=== PATIENT | female | born 1935 | race Caucasian/White ===

== ENCOUNTER 2024-11-10 00:46 | Emergency (ER) | payer MEDICARE, OTHER, SELFPAY ==
--- OUTSIDE RECORDS SUMMARY | 2024-10-28 14:00 | XMS_ITS | Encounter Summary ---
Author Organization [facility] Address [address] [place] [address] Care Team Providers Care Merchant Miller Name Role Phone Ramon Nicole DO Primary Care Provider Source Comments In the event this information is protected by the Federal Confidentiality of Alcohol and Drug AbusePatient Records regulations: The Federal rules restrict any use of the information to criminally investigate or prosecute any alcohol or drug abuse patient.[facility] Encounter Details Date Type Department Care Team (Latest Contact Info) Description 10/28/2024 2:00 PM EDT [facility] Hematology/Oncology [address] [place] [address] [place] [address] Malignant neoplasm of upper-outer quadrant of left breast in female, 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 Last address used for calculation [address] 04/06/2023 Comments No Sex and Gender Information Value Date Recorded Sex Assigned at Not on file Legal Sex Female 10:12 AM EST Gender Identity Not on file Sexual Orientation Not on file documented as of this encounter Functional Status * Are you deaf or do you have serious difficulty hearing? Answer Date of Assessment Author No 07/30/2014 10:07 AM Katja Tse RN * Are you blind or do you have serious difficulty seeing, even when wearing glasses? Answer Date of Assessment Author No 07/30/2014 10:07 AM Katja Tse RN * Do you have serious difficulty walking or climbing stairs? Answer Date of Assessment Author No 07/30/2014 10:07 AM Katja Tse RN * Do you have difficulty dressing or bathing? Answer Date of Assessment Author No 07/30/2014 10:07 AM Katja Tse RN * Because of a physical, mental, or emotional condition, do you have difficulty doing errands alone such as visiting a doctor's office or shopping? Answer Date of Assessment Author No 07/30/2014 10:07 AM Katja Tse RN documented as of this encounter Mental Status * Because of a physical, mental, or emotional condition, do you have serious difficulty concentrating, remembering, or making decisions? Answer Entry Date Author No 07/30/2014 10:07 AM Katja Tse RN documented in this encounter Plan of Treatment Upcoming Encounters Date Type Department Care Team (Latest Contact Info) Description 02/04/2025 1:45 PM EST [facility]fusion Center Hematology/Oncology [address] [place] [address] [place] [address] Lab port & Flush. Follow up obed Spencer 02/04/2025 2:00 PM EST Visit (SP) Office Hematology/Oncology [address] [place] [address] [place] [address] Johanna Cohen, PALeighC [address] [place] [address] [place] [address] Lab port & Flush. Follow up obed Spencer documented as of this encounter Visit Diagnoses Diagnosis Malignant neoplasm of upper-outer quadrant of left breast in female, estrogen receptor negative (HCC)- Primary documented in this encounter Care Teams Merchant Miller Relationship Specialty Start Date End Date CoreyRamon DO Darron [address] [place] [address] PCP - General Genetics 01/12/11 documented as of this encounter
[2024-11-10] VITALS (21 sets, daily range): BP systolic 115–168; BP diastolic 64–91; PULSE 78–104; TEMP 37.7; O2SAT 88–97; BMI 29.3
--- OUTSIDE RECORDS SUMMARY | 2024-11-10 00:58 | XMS_ITS | Continuity of Care Document ---
Author Organization [facility] Address [address] [place] [address] Problems Unknown Problems Results Test Result Date/Time Value / Unit Interp. Refere nce Range SARS-CoV-2 (COVID-19), RT-PC R/TMA[[id number]] Collected: 12/04/2020 02:55 PM Specimen Received: 12/05/2020 07:32 PM Source: [facility] SARS-CoV-2 INTERPRETATION [[id number]] 12/06/2020 01:34 AM Negative See Note SARS-CoV-2 RNA NOT DETECTEDN egative results do not preclude SARS-CoV-2 infection and should notbe used as the sole basis for patient management decisions. Negativeresults must be combined with clinical observations, patient history,and epidemiological information. Optimum specimen types and timingfor peak viral levels during infections caused by SARS-CoV-2 have notbeen determined. Collection of multiple specimens or types ofspecimens may be necessary to detect virus. Improper specimencollection and handling, sequence variability under primers/probes,or organism present below the limit of detection may lead to falsenegative results. Positive and negative predictive values oftesting are highly dependent on prevalence. False negative testresults are more likely when prevalence is high. SOURCE [[id number]] 12/06/2020 01:34 AM NASOPHARYNGEAL Note: Methodology is David C gwendolyn Real-Time RT-PCR. The expected result or reference range is NEGATIVE (Not Detected). For more information regarding COVID-19 testing to include clinicalinformation, methodology detail, intended use, FDA authorization andrecommended fact sheets for patients or healthcare providers, see [employer] Announcement: SARS-CoV-2 (COVID-19) by NAAT at URL below (note,fact sheets are provided by method given in report:[email or web address]/ Alternatively, see downloadable PDF fact sheet at:https://www.for; to (do) Centers.[employer]/RAAAR-30-BN-PCR Allergies, adverse reactions, alerts No known allergies and adverse reactions Medications No administered medications reported Vital Signs No vital signs reported Social History No smoking Hx information available
--- OUTSIDE RECORDS SUMMARY | 2024-11-10 00:58 | XMS_ITS | Encounter Summary ---
Author Organization [employer] Address [id number] [address] [place] [address] Care Team Providers Care Hydraulic Jack Operator Name Role Phone DamiRamon madison Primary Care Provider + [phone] Reason for Visit * Reason Onset Date Comments Med Refill 10/30/2023 Encounter Details Date Type Department Care Team (Late st Contact Info) Description 10/30/2023 Refill [facility] - Family Medicine [address] [place] [address] Mirtha Castillo CMA Social History Tobacco Use Types Packs/Day Years Used Date Smoking Tobacco: Never Smokeless Tobacco: Never Alcohol Use Standard Drinks/Week Comments Yes 0 (1 standard drink = 0.6 oz pur e alcohol) Occasional C Utilities Answer Date Recorded In the past 12 months has e electric, gas, oil, or water company threatened to shut off services in your home? No 12/06/2022 Social Connection and Isolat ion Panel [NHANES] Answer Date Recorded In a typical week, how many times do you talk on the phone with family, friends, or neighbors? More than three times a week 12/06/2022 How often do you get togethe r with friends or relatives? More than three times a week 12/06/2022 How often do you attend chur ch or mandaen services? More than 4 times per year 12/06/2022 Do you belong to any clubs o r organizations such as denominational groups, unions, fraternal or athletic groups, or school groups? Yes 12/06/2022 How often do you attend meet ings of the clubs or organizations you belong to? 1 to 4 times per year 12/06/2022 Are you , , di vorced, , never , or living with a partner? 12/06/2022 AUDIT-C Answer Date Recorded Q1: How often do you have a drink containing alcohol? Monthly or less 12/06/2022 Q2: How many drinks containi ng alcohol do you have on a typical day when you are drinking? Patient does not drink Q3: How often do you have si x or more drinks on one occasion? Never 12/06/2022 Overall Financial Resource Strain (CARDIA) Answe r Date Recorded How hard is it for you to pa y for the very basics like food, housing, medical care, and heating? Not hard at all 12/06/2022 PHQ-2 Answer Date Recorded Total Score 0 09/13/2023 [facility] - Occupational Stress Questionnaire Answer Date Recorded Do you feel stress - tense, restless, nervous, or anxious, or unable to sleep at night because your mind is troubled all the time - these days? Not at all 12/06/2022 Exercise Vital Sign Answer Date Recorde d On average, how many days pe r week do you engage in moderate to strenuous exercise (like a brisk walk)? 0 days 12/06/2022 On average, how many minutes do you engage in exercise at this level? 0 min 12/06/2022 PRAPARE - Transportation Answer Date Re corded In the past 12 months, has l ack of transportation kept you from medical appointments or from getting medications? No 11/20 In the past 12 months, has l ack of transportation kept you from meetings, work, or from getting things needed for daily living? No 12/06/2022 Housing Instability Answer Date Recorde d Are you worried or concerned that in the next two months you may not have stable housing that you own, rent or stay in as a part of a household? No 12/06/2022 Childcare Answer Date Recorded Do problems getting child ca re make it difficult for you to work or study? No 12/06/2022 Employment Answer Date Recorded Do you need help finding a [facility] career center and/or a training program? No 12/06/2022 Hunger Screening Answer Date Recorded Within the past 12 months we worried whether our food would run out before we got money to buy more. Never True 09/13/2023 Within the past 12 months th e food we bought just didn't last and we didn't have money to get more. Never True 09/13/2023 Purpose - Life Answer Date Recorded I have a purpose and direction in my life. Stron gly Agree 12/06/2022 Comments No Sex and Gender Information Value Date Recorded Sex Assigned at Not on file Legal Sex Female 11:38 AM EDT Gender Identity Not on file Sexual Orientation Not on file documented as of this encounter Plan of Treatment Upcoming Encounters Date Type Department Care Team (Late st Contact Info) Description 10/16/2025 3:20 PM EDT Office Visit [facility] - [facility] Medicine [address] [place] [address] documented as of this encounter Visit Diagnoses Not on filedocumented in this encounter Additional Health Concerns Assessment Noted Time PHQ-9 Depression Total Score: 0 09/13/19 11:01 AM EDT A Body Mass Index follow-up plan has been documented for the patient 09/13/2023 11:28 AM EDT documented as of this encounter Care Teams Hydraulic Jack Operator Relationship Specialty Start Date End Date Ramon Nicole DO [address] [place] [address] PCP - General Family Medicine 09/07/16 documented as of this encounter
--- OUTSIDE RECORDS SUMMARY | 2024-11-10 00:58 | XMS_ITS | Encounter Summary ---
Author Organization [employer] Address [id number] [address] [place] [address] Care Team Providers Care Medicine Aide Name Role Phone Ramon Nicole Primary Care Provider + [phone] Reason for Visit * Reason Comments Med Refill Encounter Details Date Type Department Care Team (Late st Contact Info) Description 06/23/2022 Refill [facility] - Family Medicine [address] [place] [phone] Kristen Gonzalez, NAYELI-SECTION HAND HELPER [address] [address] Social History Tobacco Use Types Packs/Day Years Used Date Smoking Tobacco: Never Smokeless Tobacco: Never Alcohol Use Standard Drinks/Week Comments Yes 0 (1 standard drink = 0.6 oz pur e alcohol) Occasional PHQ-2 Answer Date Recorded Total Score 0 11/29/2021 Childcare Answer Date Recorded Childcare Unknown 08/01/2018 Employment Answer Date Recorded Employment Unknown 08/01/2018 Purpose - Life Answer Date Recorded Purpose and direction in life Unknown Comments No Sex and Gender Information Value Date Recorded Sex Assigned at Not on file Legal Sex Female 11:38 AM EDT Gender Identity Not on file Sexual Orientation Not on file documented as of this encounter Plan of Treatment Upcoming Encounters Date Type Department Care Team (Late Contact Info) Description 10/16/2025 3:20 PM EDT Office Visit [facility] - Family Medicine [address] [place] [phone] documented as of this encounter Visit Diagnoses Not on filedocumented in this encounter Additional Health Concerns Assessment Noted Time PHQ-9 Depression Total Score: 0 11/30/19 22 9:15 AM EDT documented as of this encounter Care Teams Medicine Aide Relationship Specialty Start Date End Date Ramon Nicole DO [address] [facility], [place] [address] PCP - General Family Medicine 09/07/16 documented as of this encounter
--- OUTSIDE RECORDS SUMMARY | 2024-11-10 00:58 | XMS_ITS | Clinical Summary ---
Author Organization [employer] Address [id number] [address] [place] [address] Care Team Providers Care Cord Cutter Name Role Phone MiladisRamon hummel Primary Care Provider Allergies No known active allergies Medications loratadine (CLARITIN) 10 mg tablet Take 1 tablet (10 mg total) by mouth in the morning. Active ascorbic acid, vitamin C, (vitamin C) 100 MG tablet See Admin Instructions. Active vitamin E90-hzzgu acid 0.5-1 mg tablet Active magnesium oxide (MAGOX) 400 mg tablet Active triamcinolone (KENALOG) 0.1 % ointmentIndica tions:Acute dermatitis Apply 1 Application topically in the morning and 1 Application before bedtime. 30 g 1 09/13/19 24 Active furosemide (LASIX) 20 mg tabletIndicati ons:Localized edema Take 1 tablet by mouth once daily 90 tablet 1 07/19/19 25 Active bisoprolol-hyd roCHLOROthiazi de (ZIAC) 10-6.25 mg per tablet Take 1 tablet by mouth once daily 90 tablet 1 08/12/19 25 Active lisinopriL (PRINIVIL,ZEST RIL) 40 mg tablet TAKE 1 TABLET BY MOUTH IN THE MORNING 120 tablet 1 10/10/19 25 Active amLODIPine (NORVASC) 10 mg tablet TAKE 1 TABLET BY MOUTH IN THE MORNING 120 tablet 1 10/25/19 25 Active amLODIPine (NORVASC) 10 mg tablet TAKE 1 TABLET BY MOUTH IN THE MORNING 120 tablet 1 02/19/20 24 025 Discontinued Active Problems Problem Noted Date Diagnosed Date Pedal edema 12/28/2023 Dermatitis 12/28/2023 Hypokalemia 11/30/2021 Essential hypertension 11/29/2021 Impaired fasting glucose 11/29/2021 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/07/2020 Adenomatous polyp of colon 10/30/2019 Nonspecific colitis 10/30/2019 Non-specific colitis 10/30/2019 Rectal bleeding 10/24/2019 Rectal hemorrhage 10/24/2019 Personal history of breast cancer 12/03/2013 Hyperlipidemia IFG (impaired fasting glucose) Resolved Problems Problem Noted Date Diagnosed Date Resolved Date Malignant neoplasm of female breast, unspecified estrogen receptor status, unspecified laterality, unspecified site of breast 12/28/2023 07/03/2024 Primary hyperparathyroidism 11/29/2021 07/13/2022 Encounters Date Type Department Care Team Description 10/24/2024 Refill [facility] - Family Medicine [address] [place] [address] Ramon Nicole DO 10/17/2024 12:55 PM EDT - 10/17/2024 11:59 PM EDT Hospital Encounter [facility] - Mammography/DEXA Imaging [address] [place] [address] Visit for screening mammogram Discharge Disposition: Home 10/17/2024 Travel 10/10/2024 3:00 PM EDT [facility] [address] [place] [address] Ramon Nicole DO Medicare annual wellness visit, subsequent (Primary Dx); Screening for depression 10/10/2024 Travel 10/09/2024 Refill [facility] - Family Medicine [address] [place] [address] Ramon Nicole DO 08/11/2024 Refill [facility] - Family Medicine [address] [place] [address] Ramon Nicole DO from Last 3 Months Immunizations Immunization Administration Dates Next Due COVID-19, mRNA, LNP-S, PF, 1 00mcg/0.5mL Dose 03/23/2020,02/21/2020 COVID-19, mRNA, LNP-S, PF, 30mcg/0.3mL Dose 03/23,03/19/2020 Influenza (IM) Preservative Free 02/04/2016,01/20,01/28/2015 Influenza Split Preservative Free ID 12/02/2015 Influenza, Im Trivalent Preservative 12/03/2015 Influenza, Unspecified 01/24/2015 Pneumococcal Conjugate 13-Valent 03/05/2013 Pneumococcal Polysaccharide 12/30/2004 Td, Unspecified 08/17/2006 Tdap 09/23/2015 Tetanus 02/01/1999 Zoster Live 2012 Zoster Vaccine Recombinant 12/02/2021 Family History Medical History Relation Name Comments Breast cancer Maternal Aunt yola Relation Name Status Comments Father Maternal Aunt yola Mother Social History Tobacco Use Types Packs/Day Years Used Date Smoking Tobacco: Never Smokeless Tobacco: Never Tobacco Cessation:Counseling Given: Not Answered Alcohol Use Standard Drinks/Week Comments Yes 0 (1 standard drink = 0.6 oz pur e alcohol) Occasional [employer] Utilities Answer Date Recorded In the past 12 months has [employer] electric, gas, oil, or water [employer] threatened to shut off services in your [...] often do you attend chur ch or mosque services? More than 4 times per year 12/06/2022 Do you belong to any clubs o r organizations such as temple groups, unions, fraternal or athletic groups, or [...] PHQ-2 Answer Date Recorded Total Score 0 10/10/[address] [facility] [place] [facility] Occupat ional Health - Occupational Stress [...] exercise (like a brisk walk)? 0 days 10/10/2024 On average, how many minutes do you engage in exercise at this level? 0 min 10/10/2024 PRAPARE - Transportation Answer Date Re corded [...] Recorded Do you need help finding a [facility] career center and/or a training program? No 12/06/2022 Hunger Screening Answer Date Recorded Within the past 12 months we worried whether our food would run out before we got money to buy more. Never True 10/10/2024 Within the past 12 months th e food we bought just didn't last and we didn't have money to get more. Never True 10/10/2024 Purpose - Life Answer Date Recorded I have a purpose and direction in my life. Stron gly Agree 12/06/2022 Comments No Sex and Gender Information Value Date Recorded Sex Assigned at Not on file Legal Sex Female 11:38 AM EDT Gender Identity Not on file Sexual Orientation Not on file Last Filed Vital Signs Vital Sign Reading Time Taken Comments Blood Pressure 130/80 10/10/2024 2:46 PM EDT Pulse 71 07/03/2024 9:26 AM EDT Temperature 36.6 C (97.8 F) 07/03/2024 9:26 AM EDT Respiratory Rate 18 07/03/2024 9:26 AM EDT Oxygen Saturation 94% 07/03/2024 9:26 AM EDT Inhaled Oxygen Concentration - - Weight 69.4 kg (153 lb) 10/10/2024 2:46 PM EDT Height 144.8 cm (4' 9 ) 10/10/2024 2:46 PM EDT Body Mass Index 33.11 10/10/2024 2:46 PM EDT Plan of Treatment Upcoming Encounters Date Type Department Care Team (Late st Contact Info) Description 10/16/2025 3:20 PM EDT Office Visit [facility] - Family Medicine [address] [place] [phone] Health Maintenance Due Date Last Done Comments Influenza Vaccine 10/21/2024 02/04/2016, , 12/03/2015, Additional history exists Zoster (Shingles) Vaccine (2 of 2) 12/30/2024 12/02/2021, 2012 Postponed from 01/27/2022 (Vaccine Not Available) DTaP,Tdap and Td Vaccines (2 - Td or Tdap) 09/22/2025 09/23/2015, 08/17/2006 Depression Screening 10/10/2025 10/10/2024 Fall Risk Screening 10/10/2025 10/10/2024 Medicare Annual Wellness Visit 10/10/2025 10/10/2024, 12/06/2022, 11/29/2021 Tobacco Screening 10/10/2025 10/10/2024 COVID-19 Vaccine Discontinued 03/02/2021, , 03/23/2020, Additional history exists Medical Devices Implanted Type Area Cytopathologist Device Identifier Shelf Expiration Date Model / Serial / Lot Acrysof Iol Implanted:Qty: 1 on 12/07/2020 by Cody Lainez DO at [facility] Right: Eye [employer] 04/19/2025 [id number] / [id number] / NA Procedures Procedure Name Priority Date/Time Associated Diagnosis Comments MAMM SCREENING BILATERAL W CAD Routine 10/17/2024 1:17 PM EDT Visit for screening mammogram from Last 3 Months Results * Mammography screening bilateral with CAD (10/17/2024 1:17 PM EDT) Anatomical Region Laterality Modality Breast Bilateral Mammography 10/22/2024 8:18 AM EDT Narrative 10/22/2024 8:20 AM EDT VERONICA DAVENPORT 1935 [id number] EXAM: MAMM SCREENING BILATERAL W CAD, 10/17/2024 12:55 PM CLINICAL INDICATIONS: Screening, Visit for screening mammogram COMPARISON: 10/16/2023 TECHNIQUE: Bilateral digital tomosynthesis MLO and CC views of the breasts were obtained, with creation of synthetic 2D views. Computer aided detection was utilized. FINDINGS: The breasts are heterogeneously dense, which may obscure small masses. There are postoperative changes in the left breast. Benign-appearing calcifications are present. There are no suspicious masses, calcifications, or areas of architectural distortion. IMPRESSION: No mammographic evidence of malignancy. BI-RADS: BI-RADS 2 - Benign RECOMMENDATION: Routine screening mammogram in 1 year. RISK ASSESSMENT: Tyrer-Cuzick score not calculated. The TC risk model does not apply to patients with a personal history of breast malignancy, those over the age of 84, male, or transgender patients. Finalized by Mitch Jaffe MD on 10/22/2024 8:20 AM 2 c MAMM 1 YR FDA Accredited Performing Facility: [facility] - Mammography/DEXA Imaging [address] [facility] [id number] Procedure Note Mitch Jaffe MD - 10/22/2024 VERONICA DAVENPORT 1935 [id number] EXAM: MAMM SCREENING BILATERAL W CAD, 10/17/2024 12:55 PM CLINICAL INDICATIONS: Screening, Visit for screening mammogram COMPARISON: 10/16/2023 TECHNIQUE: Bilateral digital tomosynthesis MLO and CC views of the breastswere obtained, with creation of synthetic 2D views. Computer aideddetection was utilized. FINDINGS: The breasts are heterogeneously dense, which may obscure small masses. There are postoperative changes in the left breast. Benign- appearingcalcifications are present. There are no suspicious masses,calcifications, or areas of architectural distortion. IMPRESSION: No mammographic evidence of malignancy. BI-RADS: BI-RADS 2 - Benign RECOMMENDATION: Routine screening mammogram in 1 year. RISK ASSESSMENT: Tyrer-Cuzick score not calculated. The TC risk model does not apply topatients with a personal history of breast malignancy, those over the ageof 84, male, or transgender patients. Finalized by Mitch Jaffe MD on 10/22/2024 8:20 AM 2 c MAMM 1 YR FDA Accredited Performing Facility: [facility] - Mammography/DEXA Imaging [address] [place] [place] [address] Dereck Stephens MD IMG MAMMOGRAPHY ORDERABLE S Final Result from Last 3 Months Insurance MEDICARE Care Teams Cord Cutter Relationship Specialty Start Date End Date Ramon Nicole DO [address] [facility], [place] [address] PCP - General Family Medicine 09/07/16
--- OUTSIDE RECORDS SUMMARY | 2024-11-10 00:58 | XMS_ITS | Encounter Summary ---
Author Organization [facility] Address [id number] [address] [place] [address] Care Team Providers Care Maintenance Mechanic Millwright Name Role Phone Ramon Nicole Primary Care Provider + [phone] Reason for Visit * Reason Comments Med Refill Encounter Details Date Type Department Care Team (Late st Contact Info) Description 02/22/2022 Refill [facility] Internal Medicine - Family Medicine [address] [place] [phone] Kristen Gonzalez, NAYELI-SAILING MASTER [address] [place] [address] Social History Tobacco Use Types Packs/Day Years [...] Medicine - Family Medicine [address] [place] [phone] documented as of this encounter Visit Diagnoses Not on filedocumented in this encounter Additional Health Concerns Assessment Noted Time PHQ-9 Depression Total Score: 0 11/30/19 22 9:15 AM EDT documented as of this encounter Care Teams Maintenance Mechanic Millwright Relationship Specialty Start Date End Date Ramon Nicole DO [address] [facility], [place] [address] PCP - General Family Medicine 09/07/16 documented as of this encounter
--- OUTSIDE RECORDS SUMMARY | 2024-11-10 00:58 | XMS_ITS | Clinical Summary ---
Author Organization [facility] Address [address] [place], [place] [id number] Care Team Providers Care Mid Level Business Analyst Name Role Phone Ramon Nicole DO Primary Care Provider Allergies No known active allergies Medications lisinopril 20 mg tablet Take 20 mg by mouth twice daily. Active Aspirin 81 mg Tab Take 81 mg by mouth once daily. Active bisoprolol-hydro chlorothiazide 10-6.25 mg per tablet Take 1 tablet by mouth once daily. Active Magnesium 500 mg Tab Take by mouth. Active VITAMIN B COMPLEX ORAL Take by mouth. Active amLODIPine (NORVASC) 10 mg tablet Take 10 mg by mouth once daily. 01/24/2019 Active ascorbic acid (VITAMIN C ORAL) Take by mouth. Active Multivitamins-Mi nerals-Lutein (MULTIVITAMIN 50 PLUS) tab Take 1 tablet by mouth once daily. Active ascorbic acid,sod/zinc ox,gluc (ZINC AND C ORAL) Take by mouth. Active Active Problems Problem Noted Date Diagnosed Date Personal history of malignant neoplasm of breast 12/03/2013 Breast CA 12/23/2011 Encounters Date Type Department Care Team Description 10/28/2024 2:00 PM EDT Infusion Center Hematology/Oncology [address] [place] [address] [place] [address] Malignant neoplasm of upper-outer quadrant of left breast in female, estrogen receptor negative (HCC) (Primary Dx) 08/26/2024 Telephone [facility] [address] [place] [address] Johanna Cohen, PALeighC from Last 3 Months Immunizations Immunization Administration Dates Next Due influenza (IIV3) vaccine, tr ivalent, PF (AFLURIA, FLUARIX, FLULAVAL, FLUVIRIN, FLUZONE) 02/04/2016,02/04/2016,12/02/2015,01/28 pneumococcal conjugate (PCV1 3) vaccine, 13 valent (PREVNAR 13) 03/05/2013 pneumococcal polysaccharide (PPV23) vaccine, 23 valent (PNEUMOVAX 23) 12/30/2004 tetanus diphtheria (Td) vacc ine, adult, unspecified formulation 08/17/2006 tetanus diphtheria pertussis (Tdap) vaccine, age 7+ yr (ADACEL, BOOSTRIX) 09/23/2015 tetanus toxoid (TT) vaccine 02/01/1999 zoster (ZVL) vaccine, live (ZOSTAVAX) 2012 Social History Tobacco Use Types Packs/Day Years Used Date Smoking Tobacco: Never Passive Smoke Exposure: Never Smokeless Tobacco: Never Tobacco Cessation:Counseling Given: Not Answered Alcohol Use Standard Drinks/Week Comments No 0 (1 standard drink = 0.6 oz pur e alcohol) PHQ-2 Answer Date Recorded PHQ-2 score 0 02/15/2023 Area Deprivation Index Answer Date Skip rded National Score (1-100), lower number is lower ri sk 75 04/06/2023 State Score (1-10), lower number is lower risk 6 04/06/2023 Data from: https://www.neighborhoodatlas.medicine.[facility].edu/. Last address used for calculation [address] 04/06/2023 Comments No Sex and Gender Information Value Date Recorded Sex Assigned at Not on file Legal Sex Female 10:12 AM EST Gender Identity Not on file Sexual Orientation Not on file Last Filed Vital Signs Vital Sign Reading Time Taken Comments Blood Pressure 176/73 02/19/2024 1:57 PM EST Pulse 65 02/19/2024 1:57 PM EST Temperature 36.4 C (97.6 F) 02/19/2024 1:57 PM EST Respiratory Rate 16 02/19/2024 1:57 PM EST Oxygen Saturation 94% 02/19/2024 1:57 PM EST Inhaled Oxygen Concentration - - Weight 68.3 kg (150 lb 9.2 oz) 02/19/2024 1:57 P M EST Height 149.9 cm (4' 11.02 ) 02/19/2024 1:[address] Body Mass Index 30.4 02/19/2024 1:57 PM EST Plan of Treatment Upcoming Encounters Date Type Department Care Team (Latest Contact Info) Description 02/04/2025 1:45 PM EST Infusion Center Hematology/Oncology [address] [place] [address] Lab port & Flush. Follow up obed Spencer 02/04/2025 2:00 PM EST Visit (SP) Office Hematology/Oncology [address] [facility] [place] [address] Johanna Coehn PA-C [address] [place] [address] Lab port & Flush. Follow up obed Spencer Health Maintenance Due Date Last Done Comments Anxiety Screening 1953 Depression Screening 1953 Medicare Annual Wellness Visit 01/20/2002 Bone Density Screening 2002 RSV Vaccine (1 - 1-dose 75+ series) 02/21/2012 Shingrix Vaccine (3 of 3) 01/27/2022 12/02/2021, Advance Directive Discussion 02/21/2024 Influenza Vaccine (#1) 2024 6, 02/04/2016, 12/03/2015, Additional history exists DTaP,Tdap,Td Vaccine (2 - Td or Tdap) 09/22/2025 09/23/2015, 08/17/2006 Diabetes Screening 07/04/2027 07/03/2024, 0 07/03/2024, 07/03/2024, Additional history exists Pneumococcal Vaccine: 50+ Completed 03/05/2013, 11/2004 Procedures Procedure Name Priority Date/Time Associated Diagnosis Comments EXTERNAL IMAGING 10/23/2024 11:1 0 AM EDT COMPREHENSIVE METABOLIC PANEL Routine 02/19/2024 2:24 PM EST Malignant neoplasm of upper-outer quadrant of left breast in female, estrogen receptor negative (HCC) from Last 3 Months or Most Recently Relevant to Health Maintenance Results * EXTERNAL IMAGING (10/23/2024 11:10 AM EDT) Anatomical Region Laterality Modality Other us External Provider [facility] Final Res ult * (ABNORMAL) COMPREHENSIVE METABOLIC PANEL (02/19/2024 2:24 PM EST) Pathologist [facility] Protein, Total 7.4 6.3 - 8.0 g/dL 02/19/2024 2:48 PM EST [facility] Albumin 4.5 3.9 - 4.9 g/dL 02/19/2024 2:48 PM EST [facility] Calcium, Total 9.4 8.5 - 10.2 mg/dL 02/19/2024 2:48 PM EST [facility] Bilirubin, Total 0.4 0.2 - 1.3 mg/dL 02/19/2024 2:48 PM EST [facility] Alkaline Phosphatase 58 34 - 123 U/L 02/19/2024 2:48 PM EST [facility] AST 13 13 - 35 U/L 02/19/2024 2:48 PM EST [facility] ALT 14 7 - 38 U/L 02/19/2024 2:48 PM EST [facility] Glucose 139(H) 74 - 99 mg/dL 02/19/2024 2:48 PM EST [facility] Comment: The [place] Diabetes [employer] (ADA) provides guidance for cutoff values for fasting glucose and random glucose. The ADA defines fasting as no caloric intake for at least 8 hours. Fasting plasma glucose results between 100 to 125 mg/dL indicate increased risk for diabetes (prediabetes). Fasting plasma glucose results greater than or equal to 126 mg/dL meet the criteria for diagnosis of diabetes. In the absence of unequivocal hyperglycemia, results should be confirmed by repeat testing. In a patient with classic symptoms of hyperglycemia or hyperglycemic crisis, random plasma glucose results greater than or equal to 200 mg/dL meet the criteria for diagnosis of diabetes. Reference: Standards of Medical Care in Diabetes 2016, [place] [employer]. Diabetes Care. 2016.39(Suppl 1). BUN 12 7 - 21 mg/dL 02/19/2024 2:48 PM EST [facility] Creatinine 0.54(L) 0.58 - 0.96 mg/dL 02/19/2024 2:48 PM EST [facility] Sodium 135(L) 136 - 144 mmol/L 02/19/2024 2:48 PM EST [facility] Potassium 3.1(L) 3.7 - 5.1 mmol/L 02/19/2024 2:48 PM EST [facility] Chloride 92(L) 98 - 107 mmol/L 02/19/2024 2:48 PM EST [facility] CO2 30 22 - 30 mmol/L 02/19/2024 2:48 PM EST [facility] Anion Gap 13 8 - 15 mmol/L 02/19/2024 2:48 PM EST [facility] Estimated Glomerular Filtration Rate 90 >=60 mL/min/1. 73m 02/19/2024 2:48 PM EST [facility] Comment:Estimated Glomerular Filtration Rate (eGFR) is calculated using the 2020 CKD-EPI creatinine equation. This equation utilizes serum creatinine, sex, and age as parameters. The creatinine assay has traceable calibration to isotope dilution- mass spectrometry. Refer to KDIGO guidelines for clinical interpretation. In patients with unstable renal function, e.g. those with acute kidney injury, the eGFR may not accurately reflect actual GFR. Blood BLOOD SPECIMEN / Unknown Port - Continuous Access Dev. / Unknown 02/19/2024 2:24 PM EST 02/19/2024 2:26 PM EST us Dereck Stephens MD LABORATORY Final Res ult [facility] [address] [place] [address] from Last 3 Months or Most Recently Relevant to Health Maintenance Insurance MEDICARE [facility] [place] [address] Care Teams Mid Level Business Analyst Relationship Specialty Start Date End Date Ramon Nicole DO [address] [facility] [place] [phone] PCP - General Genetics 01/12/11
--- OUTSIDE RECORDS SUMMARY | 2024-11-10 00:58 | XMS_ITS ---
Author Organization [facility] Address [address] [place], [place] [id number] Care Team Providers Care Car Deliverer Name Role Phone Ramon Nicole DO Primary Care Provider Active Problems Problem Noted Date Diagnosed Date Personal history of malignant neoplasm of breast 12/03/2013 Breast CA 12/23/2011 Current Treatment and Therapy Plans No current plan information found. Past Treatment and Therapy Plans NON-CHEMO 1 Plan Name Start Date Discontinue Date Treatment Medications Discontinue Reason Plan Provider Cycles CENTRAL LINE FLUSH - Weekly x 24 weeks 2 10/17/2016 No medications scheduled. Other Joanna Moya APRN.TYPEWRITER OPERATOR AUTOMATIC 1 of 1 cycle started CENTRAL LINE FLUSH - ONE TIME 12/26/2011 10/17/2016 No medications scheduled. Treatment Complete Joanna Moya APRN.TYPEWRITER OPERATOR AUTOMATIC 1 of 1 cycle started
--- OUTSIDE RECORDS SUMMARY | 2024-11-10 00:59 | XMS_ITS | Clinical Summary ---
Author Organization [facility] Address [address] [place] [address] Care Team Providers Care Maker Up Folding Name Role Phone Ramon Nicole MD Primary Care Provider Allergies No known active allergies Medications lisinopril 40 MG tablet Take 40 mg by mouth in the morning. 10/05/19 24 Active furosemide (Lasix) 20 MG tablet Take 1 tablet by mouth Daily 10/05/19 24 Active Cobalamin Combinations (Vitamin Y07-Twfes Acid) 500-400 MCG tablet Active bisoprolol-hydro CHLOROthiazide (Ziac) 10-6.25 MG tablet Take 1 tablet by mouth Daily 08/22/19 24 Active aspirin 81 MG chewable tablet 1 (one) time each day at the same time Active loratadine (Claritin) 10 MG tablet Take 10 mg by mouth in the morning. Active magnesium oxide (Mag-Ox) 400 MG tablet Active amLODIPine-benaz epril (Lotrel) 10-20 MG capsule 1 capsule 1 (one) time each day at the same time Active ascorbic acid (Vitamin C) 100 MG tablet See administration instructions Active Active Problems No known active problems Immunizations Immunization Administration Dates Next Due Influenza, seasonal, injectable, preservative fr ee 02/04/2016,01/28/2015 Influenza, seasonal, intradermal, preservative f ree 12/02/2015 Moderna SARS-CoV-2 Vaccination 03/23/2020,2020 Pneumococcal Conjugate PCV 13 03/05/2013 Pneumococcal Polysaccharide PPSV23 12/30/2004 Td (adult), unspecified 08/17/2006 Tdap 09/23/2015 Tetanus toxoid, adsorbed 02/01/1999 Zoster, Recombinant 12/02/2021 Zoster, live 2012 Family History Relation Name Status Comments Father Mother Social History Tobacco Use Types Packs/Day Years Used Date Smoking Tobacco: Never Tobacco Cessation:Counseling Given: Not Answered Alcohol Use Standard Drinks/Week Comments Yes 1 (1 standard drink = 0.6 oz pur e alcohol) 1x monthly Comments Unknown Sex and Gender Information Value Date Recorded Sex Assigned at Not on file Legal Sex Female 6:48 PM EDT Gender Identity Not on file Sexual Orientation Not on file Last Filed Vital Signs Vital Sign Reading Time Taken Comments Blood Pressure - - Pulse - - Temperature - - Respiratory Rate - - Oxygen Saturation - - Inhaled Oxygen Concentration - - Weight 68 kg (150 lb) 07/25/2024 9:12 AM EDT Height 149.9 cm (4' 11 ) 07/25/2024 9:12 AM EDT Body Mass Index 30.3 07/25/2024 9:12 AM EDT Plan of Treatment Upcoming Encounters Date Type Department Care Team (Late st Contact Info) Description 11/25/2024 9:45 AM EDT Procedure Visit [facility] [address] [place] [phone] Michael Rodriguez, DPLianet [address] [place], [place] [id number] Health Maintenance Due Date Last Done Comments Influenza Vaccine (#1) 2024 6, 12/02/2015, 01/28/2015 Pneumococcal Vaccine: 65+ Years Completed 4, 12/30/2004 Insurance MEDICARE [facility] [place] [phone] Care Teams Maker Up Folding Relationship Specialty Start Date End Date Ramon Nicole MD [address] [facility] [place] [address] PCP - General Family Medicine 10/10/23
--- OUTSIDE RECORDS SUMMARY | 2024-11-10 00:59 | XMS_ITS | Patient Health Record ---
Author Organization [facility] Address [address] [place] [phone] Support Name Relationship Address Phone SIDNEY GARSIA Guarantor Unknown Reason For Referral No Information Plan Of Treatment No Information
--- NOTE | 2024-11-10 01:11 | PC.NURSE ---
Pulse ox. 85% on room air. Oxygen applied at 2 LPM/NC and pulse ox. up to 97% with oxygen.
--- NOTE | 2024-11-10 01:17 | ECG_ITS ---
[facility] Test Date: 2024-11-10 Pat Name: ISDNEY GARSIA Department: Room: - Gender: Female Pickle Sorter: : 1935 Requested By: [id number] Order Number: [id number] Reading MD: JAYME GONZALEZ M.D. Measurements Intervals [place] Rate: 103 P: -30 LA: 172 QRS: 27 QRSD: 98 T: 238 QT: 308 QTc: 368 Interpretive Statements 1120 Sinus tachycardia [address] depression 4564 Twave abnormality, possible lateral ischemia 4664 Twave abnormality, possible inferior ischemia 8102 Low QRS voltage in chest leads 9150 abnormal ECG No previous ECG available for comparison Electronically Signed On 11-10-2024 13:56:36 EDT by JAYME GONZALEZ M.D.
[2024-11-10 01:46] LABS: Hematocrit 42.2 % (36.0-48.0); Hemoglobin 14.8 g/dL (12.0-16.0); Immature Granulocytes Abs Auto 0.05 10^3/uL (0.00-0.03); Immature Granulocytes Pct Auto 0.5 % (0.0-0.5); Lymphocytes Absolute Auto 0.9 10^3/uL (1.2-3.8); Mean Corpuscular HGB Conc 35.1 g/dL (29.9-35.2); Mean Corpuscular Hemoglobin 29.8 pg (26.7-34.0); Mean Corpuscular Volume 84.9 fL (81.0-99.0); Platelet Count 210 10^3/uL (150-450); Red Blood Count 4.97 10^6/uL (4.20-5.40); White Blood Count 10.7 10^3/uL (4.0-11.0)
[2024-11-10 02:06] LABS: Alanine Aminotransferase 35 U/L (14-59); Albumin Globulin Ratio 0.9; Albumin Level 3.7 g/dL (3.4-5.0); Alkaline Phosphatase 62 U/L (46-116); Anion Gap 14.0; Aspartate Amino Transferase 22 U/L (15-37); Blood Urea Nitrogen 13.0 mg/dL (7.0-18.0); Calcium 8.7 mg/dL (8.5-10.1); Carbon Dioxide 27.2 mmol/L (21.0-32.0); Chloride 94 mmol/L (98-107); Estimated GFR (African America >60 (>=60 mL/min/1.73m^2); Estimated GFR (Non-African Ame >60 (>=60 mL/min/1.73m^2); Globulin 4.2 g/dL; Glucose 210 mg/dL (74-106); NT Pro B Type Natriuretic Pept 391.0 pg/mL (<=1800.0); Potassium 3.2 mmol/L (3.5-5.1); Sodium 132 mmol/L (136-145); Total Protein 7.9 g/dL (6.4-8.2)
[2024-11-10 02:11] LABS: Lactate/Lactic Acid 2.3 mmol/L (0.4-2.0)
[2024-11-10 02:25] LABS: Glucose Urine UA NEGATIVE (NEGATIVE)
[2024-11-10 02:34] LABS: Cast Seen? NONE SEEN #/LPF (NONE SEEN); Crystals Seen? None Seen #/HPF (None Seen)
[2024-11-10 02:35] LABS: Urine Culture Indicated NO
[2024-11-10 04:02] LABS: Lactate/Lactic Acid 2.8 mmol/L (0.4-2.0)
[2024-11-10 04:16] LABS: Partial Thromboplastin Time 28.8 sec (22.3-36.2)
--- NOTE | 2024-11-10 04:45 | ED.GENADUL1 ---
HPI HPI - General Adult General Chief complaint: Weakness Stated complaint: WEAKNESS Time Seen by Provider: 11/10/24 01:08 Source: patient and family Mode of arrival: Wheelchair History of Present Illness HPI narrative: Patient is an 89-year-old female presenting to the emergency department with a 1 week history of progressively worsening dyspnea and chest pain. Patient states that today, her symptoms acutely worsened. She states was walking down a flight of stairs when she became short of breath, chest pain, and almost passed out. She has never had symptoms like this in the past. She denies history of cardiac disease such as IA or coronary stents. She denies history of COPD/asthma and is not on home oxygen. She only has a history of hypertension. She does report a remote history of breast cancer 15 years ago, but is is in remission and not actively undergoing chemotherapy. Related Data Home Medications ?Medication ?Instructions ?Recorded ?Confirmed amlodipine 10 mg tablet 10 mg PO DAILY 11/10/24 11/10/24 bisoprolol 10 1 tab PO DAILY 11/10/24 11/10/24 mg-hydrochlorothiazide 6.25 mg tablet furosemide 20 mg tablet 20 mg PO DAILY 11/10/24 11/10/24 lisinopril 40 mg tablet 40 mg PO DAILY 11/10/24 11/10/24 Allergies Allergy/AdvReac Type Severity Reaction Status Date / Time No Known Drug Allergies Allergy Verified 11/10/24 01:07 Review of Systems ROS Status of ROS 10 or more systems reviewed and unremarkable except as noted in history and below [facility] Medical History (Updated 11/10/24 @ 05:25 by Donavon Hunt DO) Breast cancer ?C50.919 - Malignant neoplasm of unspecified site of unspecified female breast (ICD-10) Hypertension ?I10 - Essential (primary) hypertension (ICD-10) Social History Little interest or pleasure in doing things: not at all Feeling down, depressed, or hopeless: not at all Exam Narrative Exam Narrative: CONSTITUTIONAL: Well-appearing, answering questions and following commands appropriately SKIN: Was warm and dry. EYES: No conjunctival pallor EARS, NOSE, THROAT: No JVD RESPIRATORY: Clear to auscultation bilaterally, no wheezes, crackles, or stridor, no use of accessory muscles CARDIOVASCULAR: Tachycardic rate and regular rhythm. There is no S3, S4, murmur, rub. Radial pulses are 2+ and symmetrical. GASTROINTESTINAL: Abdomen was soft, non-tender, and non-distended. There is no guarding or rebound tenderness MUSCULOSKELETAL: There is symmetric, bilateral pitting edema in the lower extremities. NEUROLOGIC: Patient is awake and alert. Facies were symmetrical. Constitutional Vital Signs, click to edit/add: Last Vital Signs Temp 99.8 F 11/10/24 01:09 Pulse 94 H 11/10/24 04:30 Resp 22 H 11/10/24 04:30 BP 140/86 11/10/24 02:37 Pulse Ox 94 L 11/10/24 04:30 O2 Del Method Nasal Cannula 11/10/24 02:37 O2 Flow Rate 2 11/10/24 02:37 Course Vital Signs Vital signs: Vital Signs Blood Pressure 149/80 H 11/10/24 01:07 Pulse Oximetry 88 L 11/10/24 01:07 Temperature 99.8 F 11/10/24 01:09 Pulse Rate 94 H 11/10/24 04:30 Respiratory Rate 22 H 11/10/24 04:30 Blood Pressure 140/86 11/10/24 02:37 Pulse Oximetry 94 L 11/10/24 04:30 Oxygen Delivery Method Nasal Cannula 11/10/24 02:37 Oxygen Delivery Flow Rate 2 11/10/24 02:37 Medical Decision Making MDM Narrative Medical decision making narrative: Patient is an 89-year-old female presenting to the emergency department with 1 week history of progressively worsening dyspnea and chest pain. Her history significant for hypertension and remote history of breast cancer 15 years ago, currently in remission and not undergoing chemotherapy. Vital signs on arrival were significant for hypoxia to 85% on room air. Her saturations improved to 97% on 2 L nasal cannula. She was tachycardic with a heart rate around 110. She has a normal blood pressure and is otherwise hemodynamically stable. Other than her vital sign abnormalities, she has an unremarkable physical examination. My initial concern is that the patient may have a pulmonary embolism given the new hypoxia, tachycardia, and chest pain/dyspnea. Other potential etiology includes ACS, pneumothorax, symptomatic anemia, or other electrolyte/metabolic derangement. IV was established and laboratory studies were obtained. CT angiogram of the thorax was ordered. 12 Lead EKG: Sinus tachycardia at a rate of 103. Normal axis. No ST segment elevations. QRS, UT, and QTc interval within normal limits. Final impression: Sinus tachycardia without evidence of acute myocardial ischemia. Laboratory studies were significant for an elevated troponin of 275, with a repeat 2-hour troponin of 383. She has a lactic acidosis of 2.3, which worsened to 2.8 on 2-hour repeat. She is mildly hyponatremic and hypokalemic. No evidence of acute renal injury. No leukocytosis or anemia. Normal PTT. UA negative. CT angiogram independently reviewed and interpreted by myself and radiology demonstrated multiple small pulmonary emboli identified in the bilateral lungs extending into the upper and lower lobes. Embolic material identified of the distal right main pulmonary artery anabolic material identified within the lobar branch segments and segmental branch segments of the pulmonary arteries. No saddle embolus identified. No right heart strain. Ascending thoracic aorta up to 4 cm diameter without aortic dissection. At this time, the patient's presentation seems to be consistent with submassive bilateral pulmonary embolism given her elevated cardiac biomarkers. Patient was treated with 80 mg/kg IV bolus of heparin, followed by an 18 units/kg/hr infusion. Patient will require transfer to a higher level of care. I did discuss the patient with hospitalist, Dr. Powers, who accepted the patient for transfer. He agreed with heparin gtt and NPO status. I did discuss the patient with vascular surgeon, Dr. Lynn, who accepted the patient as well. At the time of transfer, patient remains hemodynamically stable on a heparin drip. She is saturating 94% on 2L nasal cannula. FINAL IMPRESSION: 1. Acute submassive bilateral pulmonary emboli 2. Acute hypoxia secondary to #1 DISPOSITION: Transferred to [facility] CONDITION: Serious Lab Data Lab results reviewed: Yes I reviewed the patient's lab results Labs: Lab Results 11/10/24 11/10/24 11/10/24 Range/Units 01:40 02:22 03:30 WBC 10.7 (4.0-11.0) 10^3/uL RBC 4.97 (4.20-5.40) 10^6/uL Hgb 14.8 (12.0-16.0) g/dL Hct 42.2 (36.0-48.0) % MCV 84.9 (81.0-99.0) fL MCH 29.8 (26.7-34.0) pg MCHC 35.1 (29.9-35.2) g/dL RDW 12.8 (11.0-15.0) % Plt Count 210 (150-450) 10^3/uL MPV 9.4 L (9.5-13.5) fL Neut % (Auto) 86.6 H (43.0-75.0) % Lymph % (Auto) 8.1 L (20.5-60.0) % [place] % (Auto) 4.1 (1.7-12.0) % Eos % (Auto) 0.3 L (0.9-7.0) % Baso % (Auto) 0.4 (0.2-2.0) % Neut # (Auto) 9.3 H (1.4-6.5) 10^3/uL Lymph # (Auto) 0.9 L (1.2-3.8) 10^3/uL [place] # (Auto) 0.4 (0.3-0.8) 10^3/uL Eos # (Auto) 0.0 (0.0-0.7) 10^3/uL Baso # (Auto) 0.0 (0.0-0.1) 10^3/uL Abs Immat Gran (auto) 0.05 H (0.00-0.03) 10^3/uL Imm/Tot Granulo (auto) 0.5 (0.0-0.5) % APTT 28.8 (22.3-36.2) sec Sodium 132 L (136-145) mmol/L Potassium 3.2 L (3.5-5.1) mmol/L Chloride 94 L (98-107) mmol/L Carbon Dioxide 27.2 (21.0-32.0) mmol/L Anion Gap 14.0 BUN 13.0 (7.0-18.0) mg/dL Creatinine 0.71 (0.55-1.02) mg/dL Est GFR ( Amer) >60 (>=60 mL/min/1.73m^2) Est GFR (Non-Af Amer) >60 (>=60 mL/min/1.73m^2) BUN/Creatinine Ratio 18.3 Glucose 210 H (74-106) mg/dL Lactate 2.3 H* 2.8 H* (0.4-2.0) mmol/L Calcium 8.7 (8.5-10.1) mg/dL Total Bilirubin 1.0 (0.2-1.0) mg/dL AST 22 (15-37) U/L ALT 35 (14-59) U/L Alkaline Phosphatase 62 (46-116) U/L Troponin I High Sens 275.6 H* 383.5 H* (4.0-51.3) pg/mL NT-Pro-B Natriuret Pep 391.0 (<=1800.0) pg/mL Total Protein 7.9 (6.4-8.2) g/dL Albumin 3.7 (3.4-5.0) g/dL Globulin 4.2 g/dL Albumin/Globulin Ratio 0.9 Urine Color Yellow (YELLOW) Urine Clarity Clear (CLEAR) Urine pH 6.0 (5.0-9.0) Ur Specific [place] >=1.030 A (1.005-1.025) Urine Protein 100 A (NEG/TRACE) mg/dL Urine Glucose (UA) Negative (NEGATIVE) mg/dL Urine Ketones 15 A (NEGATIVE) mg/dL Urine Occult Blood Small A (NEGATIVE) Urine Nitrite Negative (NEGATIVE) Urine Bilirubin Negative (NEGATIVE) Urine Urobilinogen 0.2 (0.2-1.0) EU/dL Ur Leukocyte Esterase Negative (NEGATIVE) Urine RBC 0-2 (0-2) #/HPF Urine WBC 0-2 A (NONE SEEN) #/HPF Ur Squamous Epith Cells Few A (NONE/RARE) #/LPF Urine Crystals None seen (None Seen) #/HPF Urine Bacteria Trace A (NONE SEEN) #/HPF Urine Casts None seen (NONE SEEN) #/LPF Urine Mucus Small A (NONE SEEN) Ur Culture Indicated? No Imaging Data CT scan - chest: Attestation: I personally reviewed and interpreted this imaging study as follows: ECG Data Attestation: I personally reviewed and interpreted this ECG as follows: Critical Care Time Critical Care Time Critical Care Time: Yes Total Critical Care Time: 34 Attestation: Due to a high probability of clinically significant, life threatening deterioration, the patient required my highest level of preparedness to intervene emergently and I personally spent this critical care time directly and personally managing the patient. This critical care time included obtaining a history; examining the patient; pulse oximetry; ordering and review of studies; arranging urgent treatment with development of a management plan; evaluation of patient's response to treatment; frequent reassessment; and, discussions with other providers. This critical care time was performed to assess and manage the high probability of imminent, life-threatening deterioration that could result in multi-organ failure. It was exclusive of separately billable procedures and treating other patients and teaching time. Discharge Plan Discharge Chief Complaint: Weakness Clinical Impression: Pulmonary embolism Qualifiers: Pulmonary embolism type: unspecified Chronicity: acute Patient Disposition: [facility] Time of Disposition Decision: 05:24 Discharge Location: [facility] Condition: Serious Mode of Transportation: EMS
[2024-11-10] MEDS: HEPARIN SODIUM (PORCINE) 5,000 UNIT/ML VIAL 4360 UNIT IV (05:24)
[2024-11-10] MEDS: HEPARIN SODIUM,PORCINE/D5W 25,000 UNIT/500 ML IV.SOLN 19.62 UNIT IV (05:32)
== END 2024-11-10 09:38 | disposition short-term general hospital (02) ==
PROVIDERS: Emergency Provider Student in an Organized Health Care Education/Training Program; PCP Family Medicine
DX: I26.99 Other pulmonary embolism without acute cor pulmonale (principal); R06.00 Dyspnea, unspecified; R07.9 Chest pain, unspecified; R06.02 Shortness of breath; I10 Essential (primary) hypertension; Z85.3 Personal history of malignant neoplasm of breast; R09.02 Hypoxemia
CPT/HCPCS: 36415; 71275; 80053; 81001; 83605; 83880; 84484; 85025; 85730; 93005; 96374; 99285; J1644; Q9967